=== PATIENT | male | born 1950 | race Caucasian/White ===

== ENCOUNTER → 2022-10-25 12:58 | Outpatient (BNVA) | payer OTHER, SELFPAY | PROVIDERS: PCP Family Medicine; Visit Provider Nurse Practitioner Family | DX: N63.41 Unspecified lump in right breast, subareolar (principal); L57.0 Actinic keratosis; L82.1 Other seborrheic keratosis; L81.4 Other melanin hyperpigmentation; R59.0 Localized enlarged lymph nodes | CPT/HCPCS: 17000; 17003; 99213 ==

== ENCOUNTER 2022-11-09 06:07 | Outpatient (CLI) | payer OTHER, SELFPAY ==
--- NOTE | 2022-11-09 | US_ITS ---
WS: [id number] ULTRASOUND SOFT TISSUES cervical chains. HISTORY: LUMP COMPARISON: None available. TECHNIQUE: 2-D and color Doppler imaging is submitted. Benign bilateral cervical chain lymph nodes are identified. No increased vascularity. Visualized subm andibular glands are normal. IMPRESSION: Benign cervical chain lymph nodes. If there is a concerning palpable mass along the cervical chains r ecommend follow-up CT neck with IV contrast.
== END 2022-11-09 06:08 | disposition home or self-care (01) ==
PROVIDERS: PCP Family Medicine; Visit Provider Nurse Practitioner Family
DX: R59.0 Localized enlarged lymph nodes (principal)
CPT/HCPCS: 76882

== ENCOUNTER 2023-01-23 14:47 | Outpatient (CLI) | payer OTHER, SELFPAY ==
--- NOTE | 2023-01-23 14:59 | MM_ITS ---
WS: [id number] BILATERAL 3D TOMOSYNTHESIS DIGITAL DIAGNOSTIC MAMMOGRAPHY WITH CAD CLINICAL INFORMATION: RT BR LUMP HISTORY: RIGHT breast lump COMPARISON: None. TECHNIQUE: Bilateral CC, MLO, and ML views. FINDINGS: Scattered fibroglandular densities bilaterally. Fibroglandular tissue deep to the areola bilaterally. A few incidental punctate and lucent centered calcifications. Ultrasound of the RIGHT breast is pend ing. ULTRASOUND BREAST RIGHT TECHNIQUE: Ultrasound right breast focused area of concern. CLINICAL INFORMATION: RT BR LUMP FINDINGS: Ultrasound RIGHT breast deep to the areola. Hypoechoic shadowing tissue deep to the areola compatible with gynecomastia. No suspicious cystic or solid lesions to target for biopsy. Comparison LEFT breas t is similar in appearance. Findings are benign. IMPRESSION: MM/[place] [id number] BI-RADS: 2-Benign FOLLOW UP: See Report Recommend return to annual screening mammography.
== END 2023-01-23 14:48 | disposition home or self-care (01) ==
LOC: RAD 14:47
PROVIDERS: PCP Family Medicine; Visit Provider Family Medicine
DX: N63.41 Unspecified lump in right breast, subareolar (principal)
CPT/HCPCS: 76642; 77062; G0279

== ENCOUNTER → 2023-10-26 08:36 | Outpatient (BNVA) | payer OTHER, SELFPAY | PROVIDERS: PCP Family Medicine; Visit Provider Nurse Practitioner Family | DX: L81.4 Other melanin hyperpigmentation (principal); L57.8 Other skin changes due to chronic exposure to nonionizing radiation; D22.5 Melanocytic nevi of trunk | CPT/HCPCS: 99213 ==

== ENCOUNTER 2024-06-06 09:20 | Outpatient (CLI) | payer OTHER, SELFPAY ==
--- NOTE | 2024-06-06 09:23 | MR_ITS ---
WS: [id number] MRI LUMBAR SPINE NONCONTRAST TECHNIQUE: Sagittal T1, T2 and STIR imaging. Axial T1 and T2 imaging. CLINICAL INFORMATION: LUMBAR RADICULOPATHY COMPARISON: None. FINDINGS: Mild lumbar curve. No acute compression. Disc bulging worse at L3-4 and L4-L5. Slight compression superior endplate L4 with edema. Recommend correlation for low back pain. Tiny visualized fracture cleft in the superior endplate. L1-L2: Normal. L2-L3: Normal. L3-L4: Mild disc bulging with slight impingement on the RIGHT subarticular recess. Mild facet arthropathy. Mild bilateral foraminal narrowing RIGHT greater than LEFT. L4-L5: Mild disc bulging with mild central canal stenosis. Narrowing of the subarticular recess. Moderate facet arthropathy. Mild bilateral foraminal narrowing. L5-S1: Tiny central protrusion. Spinal canal and foramina are patent. Mild facet arthropathy. Visualized pelvic bony structures: Normal. Paravertebral soft tissues: Normal. MR/MR lumbar spine wo con* [id number] IMPRESSION: 1. Mild compression superior endplate L4 with edema. Tiny visualized fracture cleft. Recommend correlation for low back pain. 2. Mild central canal stenosis L4-5 with narrowing of the subarticular recess bilaterally. 3. Slight impingement on the RIGHT L3-4 subarticular recess. 4. Mild RIGHT L3-4 and bilateral L4-5 foraminal narrowing. 5. Tiny central protrusion L5-S1.
== END 2024-06-06 09:21 | disposition home or self-care (01) ==
PROVIDERS: PCP Family Medicine; Visit Provider Family Medicine
DX: M48.061 Spinal stenosis, lumbar region without neurogenic claudication (principal); M43.8X6 Other specified deforming dorsopathies, lumbar region; M51.369 Other intervertebral disc degeneration, lumbar region without mention of lumbar back pain or lower extremity pain; M47.896 Other spondylosis, lumbar region; M47.897 Other spondylosis, lumbosacral region
CPT/HCPCS: 72148

== ENCOUNTER → 2024-12-06 10:57 | Outpatient (BNVA) | payer OTHER, SELFPAY | PROVIDERS: PCP Family Medicine; Visit Provider Dermatology | DX: L82.1 Other seborrheic keratosis (principal); L81.4 Other melanin hyperpigmentation; D18.01 Hemangioma of skin and subcutaneous tissue; K13.79 Other lesions of oral mucosa; D48.5 Neoplasm of uncertain behavior of skin | CPT/HCPCS: 11102; 99213 ==